=== PATIENT | male | born 1980 | race Two or more races ===

== ENCOUNTER 2021-09-11 23:30 | Emergency (ER) | payer OTHER ==
[~2021-09-11] VITALS: Ht 177.8 cm; Wt 109.1 kg
[2021-09-11 23:38] VITALS: BP 134/94
== END 2021-09-12 01:57 | disposition left against medical advice (07) ==
LOC: ER 23:31
DX: F41.9 Anxiety disorder, unspecified (principal); Z53.21 Procedure and treatment not carried out due to patient leaving prior to being seen by health care provider